=== PATIENT | male | born 1960 | race Caucasian/White ===

== ENCOUNTER 2016-06-30 11:25 | Emergency (ER) | payer BC, MEDICAID, OTHER ==
[~2016-06-30] VITALS: Ht 185.4 cm; Wt 70.9 kg
[2016-06-30 11:34] VITALS: BP 117/76
== END 2016-06-30 12:33 | disposition home or self-care (01) ==
LOC: ED 12:24
DX: K02.9 Dental caries, unspecified (principal)
CPT/HCPCS: 99283

== ENCOUNTER 2016-07-31 02:49 | Emergency (ER) | payer OTHER ==
[~2016-07-31] VITALS: Ht 185.4 cm; Wt 72.4 kg
[2016-07-31 02:50] VITALS: BP 114/75
[2016-07-31] MEDS ORDERED: DEXAMETHASONE 4 MG TABLET ONE (04:28)
[2016-07-31] MEDS ORDERED: DEXAMETHASONE 4 MG/ML, 1ML PO ONE (04:30)
== END 2016-07-31 04:42 | disposition home or self-care (01) ==
LOC: ED 04:39
DX: J02.8 Acute pharyngitis due to other specified organisms (principal); J04.0 Acute laryngitis; F17.200 Nicotine dependence, unspecified, uncomplicated
CPT/HCPCS: 99283; J1100

== ENCOUNTER 2020-07-03 22:22 | Emergency (ER) | payer OTHER ==
[~2020-07-03] VITALS: Ht 188 cm; Wt 67.4 kg
[2020-07-03 22:26] VITALS: BP 116/72
== END 2020-07-03 22:55 | disposition left against medical advice (07) ==
LOC: ED 22:52
DX: M79.672 Pain in left foot (principal); Z53.21 Procedure and treatment not carried out due to patient leaving prior to being seen by health care provider